=== PATIENT | female | born 2000 | race Caucasian/White ===

== ENCOUNTER 2021-09-17 12:35 | Emergency (ER) | payer OTHER, SELFPAY ==
[2021-09-17 12:37] VITALS: BP 134/77; PULSE 99; RESP 16; TEMP 36.2; O2SAT 100; BMI 20.8
--- NOTE | 2021-09-17 12:51 | EDS_ITS ---
HPI History of Present Illness Chief Complaint: Laceration Detail of Chief Complaint: Laceration left hand Informant: patient and parent Narrative Narrative: Patient presents to the emergency department complaint of laceration to the left hand that occurred prior to arrival in the emergency department. Patient states that she was climbing on a counter when she fell and lacerated her hand against a broken large glass vase. Patient is right-hand dominant. Patient unsure of her last tetanus shot. PFSH PFSH Medical History no medical history Home Medications cephalexin 500 mg PO Q6 #40 capsule 09/17/21 [Rx Last Taken Unknown] Allergy/AdvReac Type Severity Reaction Status Date / Time No Known Allergies Allergy Verified 09/17/21 12:36 Surgical History no surgical history Social History Smoking Status: Never smoker ROS ROS ED Constitutional Constitutional ED: Reports systems reviewed and no addt'l complaints, except as documented; Denies body ache(s), change in weight or chills Eyes Eyes: Denies acute decrease in peripheral vision, change in vision, double vision or loss of vision ENT ENT ED: Reports none; Denies ear pain, lip swelling, loss taste/smell, neck pain, otalgia or sore throat Cardiovascular Cardiovascular: Reports none; Denies abdominal pain, chest pain with activity, leg edema, lightheadedness, palpitations, rapid heart rate or syncope Respiratory/Chest Respiratory/Chest: Reports none; Denies change in mental status, dry cough, dyspnea, hemoptysis, shortness of breath at rest or shortness of breath with exertion Gastrointestinal Gastrointestinal: Reports none; Denies abdominal pain, change in stool character, diarrhea, hematemesis, hematochezia, melena, rectal bleeding or vomiting Genitourinary Genitourinary ED: Reports none; Denies abdominal discomfort, anuria, dysuria, genital pain or polyuria Musculoskeletal Musculoskeletal: Reports none and other Details: Hand laceration ; Denies arthralgias, back pain, difficulty walking, extremity pain, muscle weakness or myalgias Integumentary Reports none; Denies abscess or rash Neurologic Neurologic: Reports none; Denies abnormal gait, confusion, focal weakness, frequent falls, headache(s), loss of vision, numbness, paresthesias, radicular pain, vertigo or weakness Psychiatric Psychiatric: Reports systems reviewed and no addt'l complaints, except as documented and none; Denies behavioral changes, confusion, difficulty concentrating, hallucinations, suicidal ideation, tactile hallucinations or visual hallucinations Endocrine Endocrinology: Denies none, cold intolerance, excessive sweating, fatigue or heat intolerance Hematologic/Lymphatic Hematologic/Lymphatic: Reports none; Denies anemia, easy bleeding or easy bruising Allergic/Immunologic Allergic/Immunologic ED: Denies as per HPI, none, lip swelling, mouth swelling, throat swelling, tongue swelling or hives EXAM Physical Exam Const Vital Signs: 09/17/21 12:37 Temperature 97.2 F L Temperature Source Temporal Pulse Rate 99 Respiratory Rate 16 Blood Pressure 134/77 H Blood Pressure Mean 96 Pulse Ox 100 Oxygen Delivery Method Room Air Positive well nourished and well developed General Appearance ED: well developed and NAD HEENT Reports TM's clear and moist mucous membranes normocephalic and atraumatic; Negative for trauma or tenderness Tympanic Membrane ED: Yes TM's clear Eyes PERRL and EOMs intact bilaterally General Eye ED: Negative for pale conjunctiva or scleral icterus Neck no lymphadenopathy, supple and no JVD General: Negative for tenderness Chest Wall inspection of chest normal and palpation of chest normal Chest: Negative for tenderness Resp normal respiratory effort and clear to auscultation bilaterally Effort and Inspection: Negative for respiratory distress or pain with movement Auscultation: Negative for rhonchi, wheezes or diminished lung sounds Cardio regular rate, regular rhythm, S1 normal heart sound, S2 normal heart sound and no murmurs Peripheral Pulses: pulses 2+ throughout GI normal to inspection, nondistended, normoactive bowel sounds, soft to palpation, non-tender, non-distended and no masses Back/Spine no CVA tenderness and no thoracic nor lumbar tenderness Extremity Extremity Narrative: Left hand-patient has a 2.5 cm laceration over the volar aspect of the PIP joint of the index finger. She is able to flex and extend the digit. Patient also has a 1 cm flap-like laceration to the lateral aspect of the middle phalanx of the middle finger. Normal range of motion flexion extension of the PIP and DIP joint of this finger. General Extremety ED: Negative for edema General Extremity: Negative for edema Neuro oriented x3, CN's II-XII intact bilaterally, no sensory deficits noted and gait normal Sensorium / Orientation: awake, alert, oriented to person, oriented to place and oriented to time Motor Exam: strength 5/5 throughout and strength abnormal Psych mental status grossly normal Skin no rashes or lesions noted and no wounds MDM MDM MDM Narrative Medical decision making narrative: Case discussed with orthopedic surgeon on- call Dr. Alejandro Mendenhall who recommended that she follow-up with his partner Dr. Martinez for partial flexor tendon lacerations. Patient was started on Keflex. Clean dressings were applied. Patient advised to have sutures removed in 10 days. She is to return if increasing pain, redness, swelling, purulent drainage, or condition should worsen anyway. Procedures Lacerations Left hand lacerations: Length: 2.56 in Depth: Tendon Prep: Sterile Conditions and Shure-Clens Laceration repair: Digital block, Irrigated, Lidocaine and Skin sutures Irrigated (ml): 150 Number of Sutures/Anh: 12 Comment: Patient has 2 lacerations on the left index finger measuring 2.5 cm and 5 mm. Patient had 2 lacerations on the left long finger measuring 2 cm and 1.5 cm inspection of the wounds after digital block was performed and hemostasis obtained with sterile rubber band. The large laceration to the left index finger over the PIP joint was evaluated and there was noted approximately 20% laceration over the ulnar aspect of the flexor tendon with normal flexion extension against resistance and normal strength. Wound was irrigated and closed with 5-0 nylon. Patient had a small laceration to the distal phalanx that had 1 single ruptured suture placed. Inspection of the wound to the left long finger over the middle phalanx noted to also have partial laceration of the flexor tendon of approximately 30 to 40% with normal flexion extension of the digit at the PIP and DIP joint with normal strength. This wound was also irrigated and closed with 5-0 nylon. Patient also had another small laceration to the distal phalanx of the middle finger which was closed with 5-0 nylon as well. Discharge Plan Triage Chief Complaint: Laceration ED Provider: Mya Falk Dx/Rx/DC Orders Clinical Impression: Finger laceration involving tendon Instructions: ED Laceration, Hand: All Closures, ED Tendon Laceration Prescriptions: New cephalexin [cephalexin] 500 MG capsule 500 mg PO Q6 Qty: 40 RF: 0 Primary Care Provider: Care Physician,No Primary Referrals: Jamari Martinez DO [STAFF PHYSICIAN] - 3-5 Days Care Physician,No Primary [Primary Care Provider] - Disposition Disposition: Home, Self Care
--- NOTE | 2021-09-17 12:52 | RAD_ITS ---
STUDY: X-RAY - LEFT HAND REASON FOR EXAM: Left hand injury, laceration at the anterior second and third digits. TECHNIQUE: 3 view(s) of the hand. COMPARISON: None. FINDINGS: Normal radiocarpal articulation. Normal distal radioulnar joint. Normal visualized carpal bones. Normal carpal articulations Normal carpometacarpal articulation of the thumb. Normal second through fifth carpometacarpal joints. Normal metacarpi. Normal metacarpophalangeal joint of the thumb. Normal interphalangeal joint of the thumb. Normal proximal and distal phalanges of the thumb. Normal metacarpophalangeal joints of the second through fifth fingers. Normal proximal and distal interphalangeal joints of the second through fifth fingers. Normal phalanges of the second through fifth fingers. There is a soft tissue defect at the plantar aspect of the base of the second middle phalanx. There is no demonstrated radiopaque foreign body. There is a small ossicle at the ulnar styloid process. RAD/Hand Min 3 Views IMPRESSION: No demonstrated fracture or radiopaque foreign body. Electronically Signed: Jarred Disla MD at 13:19 EST Tel , Service support ,
[2021-09-17] MEDS: Lidocaine 1% (20 ml mdv) 20 ML Vial 10 ML INFILT (13:15)
--- NOTE | 2021-09-17 13:15 | ED.RN ---
pt and mother refused TDAP vaccine.
[2021-09-17] MEDS: Diphth,Pertuss(Acell),Tet Vac 0.5 ML Vial IM (15:33)
[2021-09-17] MEDS: Cephalexin 250 MG Capsule 500 MG PO (16:15)
[2021-09-17 16:18] VITALS: BP 112/50; PULSE 66; RESP 14; O2SAT 100
== END 2021-09-17 16:22 | disposition home or self-care (01) ==
PROVIDERS: Emergency Provider Emergency Medicine
DX: S61.211A Laceration without foreign body of left index finger without damage to nail, initial encounter (principal); W25.XXXA Contact with sharp glass, initial encounter
CPT/HCPCS: 12001; 73130; 90471; 90715; 99284